=== PATIENT | female | born 1980 | race Caucasian/White ===

== ENCOUNTER 2018-10-24 07:46 | Day surgery (SDC) | payer OTHER ==
[~2018-10-24] VITALS: Ht 162.6 cm; Wt 100.2 kg
[~2018-10-24 07:46] MED LIST: ACET500 PO; ALBU90OI INH; AMOX500 PO; AZIT250 PO; Atarax10 MG PO; BENZ100A PO; Crutch1 EACH MISC; Fish Oil 10001000 MG PO; LEVSOD150 PO; LOSA50 PO; METO25ER PO; MULTI FOR HER1 EACH PO; OXYACE5T PO; OXYB5 PO; PHENA200 PO; PRED20 PO; RXALBOI INH
[2018-10-24] MEDS ORDERED: VARE1 PO (08:25)
--- NOTE | 2018-10-24 08:41 | NUR ---
10/24/18 0841 Luisito Lara BLOCK IN LEFT HAND, HAS BEEN FLUSHED W/ 10ML SALINE
== END 2018-10-24 11:24 | disposition home or self-care (01) ==
LOC: ORSCSDS 07:46
PROVIDERS: Orthopaedic Surgery
PROC: 01N50ZZ Release Median Nerve, Open Approach (ICD-10-PCS; principal; 2018-10-24 09:30)
DX: G56.02 Carpal tunnel syndrome, left upper limb (principal); I10 Essential (primary) hypertension; J45.909 Unspecified asthma, uncomplicated; Z87.891 Personal history of nicotine dependence; E03.9 Hypothyroidism, unspecified; F31.9 Bipolar disorder, unspecified; E66.01 Morbid (severe) obesity due to excess calories; Z68.37 Body mass index [BMI] 37.0-37.9, adult; Z79.899 Other long term (current) drug therapy
CPT/HCPCS: J0690; J2250; J2405; J2704; J3010

== ENCOUNTER 2018-11-28 06:05 | Day surgery (SDC) | payer OTHER ==
[~2018-11-28] VITALS: Ht 162.6 cm; Wt 229.4 kg
[~2018-11-28 06:05] MED LIST changes: +VARE1 PO
== END 2018-11-28 09:44 | disposition home or self-care (01) ==
LOC: ORSCSDS 06:05
PROVIDERS: Orthopaedic Surgery
PROC: 01N50ZZ Release Median Nerve, Open Approach (ICD-10-PCS; principal; 2018-11-28 07:30)
DX: G56.01 Carpal tunnel syndrome, right upper limb (principal); I10 Essential (primary) hypertension; Z87.891 Personal history of nicotine dependence; F31.9 Bipolar disorder, unspecified; E03.9 Hypothyroidism, unspecified; E66.01 Morbid (severe) obesity due to excess calories; Z68.39 Body mass index [BMI] 39.0-39.9, adult; Z79.899 Other long term (current) drug therapy
CPT/HCPCS: J0690; J2250; J2704; J3010; J7120

== ENCOUNTER → 2020-05-17 | Outpatient (CLI) | payer OTHER ==
[2020-05-18 15:09] LABS: Candida species (DNA Probe) Negative (NEGATIVE); G. vaginalis (DNA Probe) Positive (NEGATIVE); T. vaginalis (DNA Probe) Negative (NEGATIVE)
== END ==
LOC: PLD 13:10 → LAB SHORT 13:10
PROVIDERS: Nurse Practitioner Family
DX: Z12.72 Encounter for screening for malignant neoplasm of vagina (principal)
CPT/HCPCS: 87070; 87205; 87480; 87510; 87660

== ENCOUNTER 2022-04-30 13:11 | Observation (INO) | payer OTHER ==
[~2022-04-30] VITALS: Ht 162.6 cm; Wt 100.8 kg
[2022-04-30 14:09] LABS: BASOPHILS ABSOLUTE AUTO 0.03 K/mm3 (0.00-0.23); BASOPHILS PERCENT AUTO 0 % (0-2); EOSINOPHILS PERCENT AUTO 0 % (0-6); Hematocrit 42.5 % (33.0-51.0); IMMATURE GRAN ABSOLUTE AUTO 0.31 K/mm3 (0.00-0.10); IMMATURE GRAN PERCENT AUTO 2 % (0-1); LYMPHOCYTES ABSOLUTE AUTO 0.79 K/mm3 (0.84-5.20); LYMPHOCYTES PERCENT AUTO 5 % (21-46); MONOCYTES ABSOLUTE AUTO 0.72 K/mm3 (0.16-1.47); MONOCYTES PERCENT AUTO 4 % (4-13); Mean Corpuscular HGB 29.3 pg (26.0-34.0); Mean Corpuscular HGB Conc 32.9 g/dL (31.5-36.5); Mean Corpuscular Volume 89 fL (80-100); Mean Platelet Volume 10.2 fL (9.1-12.4); NEUTROPHILS ABSOLUTE AUTO 15.31 K/mm3 (1.96-9.15); NEUTROPHILS PERCENT AUTO 89 % (41-73); Platelet Count 441 K/mm3 (150-400); RDW Coefficient Variation 13.7 % (11.7-14.2); RDW Standard Deviation 44.7 fL (35.1-46.3); Red Blood Cell Count 4.78 M/mm3 (3.80-5.20); White Blood Cell Count 17.16 K/mm3 (4.00-11.30)
[2022-04-30 14:35] LABS: Source, Urine Clean Catch
[2022-04-30 14:39] LABS: Appearance, Urine Bloody (Clear); Bilirubin, Urine Neg (Neg); Blood, Urine 5+ (Neg); Color, Urine Brown (P-Yellow); Glucose Qualitative, Urine Neg (Neg); Ketones, Urine 1+ (Neg); Leukocyte Esterase, Urine 3+ (Neg); Nitrite, Urine Pos (Neg); Protein, Urine 3+ (Neg); Specific Gravity, Urine 1.015 (1.003-1.022); Urobilinogen, Urine 1+ (Normal); pH, Urine 6.5 (5.0-8.0)
[2022-04-30 14:41] LABS: Albumin, Blood 3.1 g/dL (3.4-5.0); Albumin/Globulin Ratio 0.9 (0.8-1.8); Bilirubin, Total 0.2 mg/dL (0.1-1.0); Bun/Creatinine Ratio 23.4 (12.0-20.0); Calcium, Blood 8.4 mg/dL (8.5-10.1); Creatinine, Blood 0.6 mg/dL (0.40-1.00); Globulin, Blood 3.4 g/dL (2.2-4.0); Potassium, Blood 3.9 mmol/L (3.5-5.5); Total Protein, Blood 6.5 g/dL (6.4-8.2)
[2022-04-30 14:53] LABS: Bacteria Many /hpf; Granular Casts 0-2 /lpf (0); Hyaline Casts 0-2 /lpf (0-2); RBC Cast 0-2 /lpf (0); Red Blood Cells, Urine TNTC /hpf (0-2); Squamous Epithelial Cells Few /hpf (Few); Transitional Epithelial Cells Rare /hpf (0-Rare); White Blood Cells, Urine TNTC /hpf (0-5)
[2022-04-30 19:47] LABS: U Amphetamine Screen DETECTED; U Methamphetamine Screen DETECTED
[2022-04-30 19:48] LABS: U Barbituate Screen Not Detected; U Benzodiazapine Screen Not Detected; U Buprenorphine Screen Not Detected; U Cannabinoids Screen Not Detected; U Cocaine Screen Not Detected; U Methadone Screen Not Detected; U Opiates Screen Not Detected; U Oxycodone Screen Not Detected; U Phencyclidine Screen Not Detected; U Propoxyphene Screen Not Detected
[2022-04-30] MEDS ORDERED: CARV3.125 PO (21:30)
[2022-04-30] MEDS ORDERED: DECADRON6 M1 PO (21:30)
[2022-04-30] MEDS ORDERED: BENZ100A PO (21:31)
[2022-04-30] MEDS ORDERED: FAMO20 PO (21:32)
[2022-04-30] MEDS ORDERED: Acerola C500 MG PO (21:32)
[2022-04-30] MEDS ORDERED: VITAMIN D325 MC3 (21:34)
[2022-04-30] MEDS ORDERED: GUAI600T33 PO (21:34)
[2022-04-30] MEDS ORDERED: ZINC220 PO (21:35)
--- NOTE | 2022-05-01 05:06 | NUR ---
Summary: Patient admitted last night from ER for urosepsis. Patient tested positive for COVID 8 days ago and was treated with remdesivir. Notified provider and placed patient on isolation. O2 stable on RA, patient on continuous pulso ox and tele running SR. Patient reports it cruz when she pees and she has right sided flank pain. Medicated per emar. Patient had bright red urine. Patient came to visit her in room and she was very drowsy after he left for a few hours. Patient UA this evening positive for methamphetamines. Patient easily arousable. Provider aware. Provided heat and ice therapy for flank pain. VSS.
[2022-05-01 05:16] LABS: BASOPHILS ABSOLUTE AUTO 0.04 K/mm3 (0.00-0.23); BASOPHILS PERCENT AUTO 0 % (0-2); EOSINOPHILS PERCENT AUTO 0 % (0-6); Hematocrit 41.5 % (33.0-51.0); Hemoglobin 13.4 g/dL (11.5-16.0); IMMATURE GRAN ABSOLUTE AUTO 0.46 K/mm3 (0.00-0.10); IMMATURE GRAN PERCENT AUTO 3 % (0-1); LYMPHOCYTES ABSOLUTE AUTO 1.02 K/mm3 (0.84-5.20); LYMPHOCYTES PERCENT AUTO 6 % (21-46); MONOCYTES ABSOLUTE AUTO 1.08 K/mm3 (0.16-1.47); MONOCYTES PERCENT AUTO 6 % (4-13); Mean Corpuscular HGB 28.9 pg (26.0-34.0); Mean Corpuscular HGB Conc 32.3 g/dL (31.5-36.5); Mean Corpuscular Volume 90 fL (80-100); Mean Platelet Volume 10.5 fL (9.1-12.4); NEUTROPHILS ABSOLUTE AUTO 14.38 K/mm3 (1.96-9.15); NEUTROPHILS PERCENT AUTO 85 % (41-73); Platelet Count 411 K/mm3 (150-400); RDW Coefficient Variation 13.7 % (11.7-14.2); RDW Standard Deviation 45.3 fL (35.1-46.3); Red Blood Cell Count 4.63 M/mm3 (3.80-5.20); White Blood Cell Count 16.98 K/mm3 (4.00-11.30)
[2022-05-01 05:34] LABS: Bun/Creatinine Ratio 24.8 (12.0-20.0); Calcium, Blood 7.8 mg/dL (8.5-10.1); Creatinine, Blood 0.69 mg/dL (0.40-1.00)
[2022-05-01] MEDS ORDERED: VISBIOME 112.51 EACH PO (16:09)
[2022-05-01] MEDS ORDERED: CEFD300 PO (16:37)
--- NOTE | 2022-05-01 17:00 | NUR ---
PATIENT D/C'D TO HOME WITH . DC INSTRUCTIONS AND EDUCATION DISCUSSED WITH PATIENT AND COPY PROVIDED. PATIENT DENIES ANY FURTHER QUESTIONS OR CONCERNS. PCP APPOINTMENT SCHEDULED IN AM. RX MEDICATIONS FAXED TO [facility].
== END 2022-05-01 17:02 | disposition home or self-care (01) ==
LOC: ER 13:11 → ERHOLD 13:12 → MEDS 19:56
PROVIDERS: Family Medicine Adult Medicine; Physician Assistant; ADMIT Hospitalist
DX: N10 Acute pyelonephritis (principal); I50.22 Chronic systolic (congestive) heart failure; I10 Essential (primary) hypertension; J44.9 Chronic obstructive pulmonary disease, unspecified; Z86.16 Personal history of COVID-19; R31.0 Gross hematuria; T43.621A Poisoning by amphetamines, accidental (unintentional), initial encounter; F15.90 Other stimulant use, unspecified, uncomplicated; K21.9 Gastro-esophageal reflux disease without esophagitis; Z88.8 Allergy status to other drugs, medicaments and biological substances
CPT/HCPCS: 36415; 74176; 76770; 80048; 80053; 81001; 81025; 83605; 85025; 87040; 87077; 87086; 87186; 96361; 96374; 96375; 96376; 99284-25; A9270; G0378; J0696; J1885; J7030

== ENCOUNTER → 2022-12-20 | Outpatient (CLI) | payer OTHER ==
[~2022-12-20] MED LIST changes: +Acerola C500 MG PO; +CARV3.125 PO; +CEFD300 PO; +DECADRON6 M1 PO; +FAMO20 PO; +GUAI600T33 PO; +VISBIOME 112.51 EACH PO; +VITAMIN D325 MC3; +ZINC220 PO
[2022-12-25 16:09] LABS: HPV 16 Negative (Negative); HPV 18 Negative (Negative); HPV OTHER HR TYPES Negative (Negative)
== END | disposition home or self-care (01) ==
LOC: LAB 15:01 → LAB SHORT 15:01
PROVIDERS: Nurse Practitioner Family
DX: Z12.4 Encounter for screening for malignant neoplasm of cervix (principal)
CPT/HCPCS: 87624; 88175